=== PATIENT | female | born 1980 | race Hispanic/Latino ===

== ENCOUNTER → 2023-10-11 | Day surgery (SDC) | payer BC ==
[~2023-10-11] MED LIST: FENTANYL CITRATE/PF 100MCG/2 ML INJ ONE; GLYCOPYRROLATE INJ 0.2 MG/ML VIAL ONE; IRON PO; LACTATED RINGER'S 1,000 ML ONE; LIDOCAINE HCL 2% LOCAL INJ 5 ML SDV VIAL INJ ONE; PROPOFOL IV EMULSION 10 MG/ML 50 ML VIAL IV ONE; PROPOFOL IV EMULSION 50 ML IV ONE; SIMETHICONE 40 MG/0.6 ML BTL ONE
[2023-10-11 13:59] VITALS: TEMP 97.2
[2023-10-11 14:25] VITALS: BP 126/80; PULSE 69; RESP 15; O2SAT 100
== END | disposition home or self-care (01) ==
LOC: OR 11:17
PROVIDERS: ATTEND Internal Medicine Gastroenterology
DX: D64.89 Other specified anemias (principal); K20.90 Esophagitis, unspecified without bleeding; K29.50 Unspecified chronic gastritis without bleeding; D12.2 Benign neoplasm of ascending colon; K51.90 Ulcerative colitis, unspecified, without complications; K64.8 Other hemorrhoids; K92.1 Melena; K62.89 Other specified diseases of anus and rectum; Z71.3 Dietary counseling and surveillance; Z68.28 Body mass index [BMI] 28.0-28.9, adult; Z88.0 Allergy status to penicillin
CPT/HCPCS: 43239; 45380; 81025; 83630; 83993; 86140; 87045; 87177; 87324; 87328; 87449; C9113; J2001; J2704; J3010; J7121; 45378; 45385